=== PATIENT | male | born 1995 | race American Indian/Alaskan Native ===

== ENCOUNTER 2020-10-22 16:56 | Emergency (ER) | payer MEDICAID ==
[~2020-10-22] VITALS: Ht 172.7 cm; Wt 79.4 kg
[2020-10-22] MEDS ORDERED: LEVO200T9 PO (17:12)
--- NOTE | 2020-10-22 17:27 | NUR ---
Dr Hernandez at the bedside for MSE.
[2020-10-22] MEDS ORDERED: AZITHROMYCIN 250 MG TABLET PO ONE (17:30)
[2020-10-22 17:38] VITALS: BP 135/87
[2020-10-22] MEDS ORDERED: AZITHROMYCIN 250 MG TABLET ONE (17:38)
--- NOTE | 2020-10-22 17:39 | NUR ---
Patient discharged to home in stable condition. Written and verbal after care instructions given. Patient verbalizes understanding of instructions. Stressed follow up or return to ER for worsening s/s.
== END 2020-10-22 17:39 | disposition home or self-care (01) ==
LOC: ER 17:00
DX: J02.9 Acute pharyngitis, unspecified (principal); J45.909 Unspecified asthma, uncomplicated; E89.0 Postprocedural hypothyroidism; Z85.850 Personal history of malignant neoplasm of thyroid
CPT/HCPCS: A4663; Q0144